=== PATIENT | male | born 1980 | race Caucasian/White ===

== ENCOUNTER 2018-02-07 22:11 | Emergency (ER) | payer SELFPAY ==
[2018-02-08] MEDS ORDERED: HYDROCODONE/ACETAMINOPHEN 5-325 MG (6 TAB/ER DISP) PO PRN (02:40)
[2018-02-08] MEDS ORDERED: PENICILLIN V POTASSIUM 500 MG TABLET PO ONE (02:40)
--- NOTE | 2018-02-08 02:41 | ER Document Report ---
ED Oral Problem - General Chief Complaint: Abscess Stated Complaint: TOOTH PAIN Time Seen by Provider: 02/08/18 02:40 Mode of Arrival: Ambulatory Information source: Patient Notes: Patient reports pain to left lower tooth 3 days. Patient has been unable to get into see his dentist. Patient denies any injury. - Related Data Allergies/Adverse Reactions: No Known Allergies Allergy (Unverified 02/07/18 22:23) Past Medical History - General Information source: Patient - Social History Smoking Status: Never Smoker Frequency of alcohol use: None Drug Abuse: None Family History: Reviewed & Not Pertinent - Past Medical History Cardiac Medical History: Reports: Hx Hypertension Surgical Hx: Negative - Immunizations Hx Diphtheria, Pertussis, Tetanus Vaccination: Yes Review of Systems - Review of Systems Constitutional: No symptoms reported EENT: See HPI Cardiovascular: No symptoms reported Respiratory: No symptoms reported Gastrointestinal: No symptoms reported Genitourinary: No symptoms reported Male Genitourinary: No symptoms reported Musculoskeletal: No symptoms reported Skin: No symptoms reported Hematologic/Lymphatic: No symptoms reported Neurological/Psychological: No symptoms reported Physical Exam - Vital signs Vitals: Temp Pulse Resp BP Pulse Ox 99.3 F 78 18 170/99 H 97 02/07/18 22:19 02/07/18 22:19 02/07/18 22:19 02/07/18 22:19 02/07/18 22:19 - Notes Notes: PHYSICAL EXAMINATION: GENERAL: Well-appearing, well-nourished and in no acute distress. HEAD: Atraumatic, normocephalic. EYES: Pupils equal round extraocular movements intact, conjunctiva are normal. ENT: Nares patent NECK: Normal range of motion LUNGS: No respiratory distress Musculoskeletal: Normal range of motion NEUROLOGICAL: Normal speech, normal gait. PSYCH: Normal mood, normal affect. SKIN: Warm, Dry, normal turgor, no rashes or lesions noted. Course - Re-evaluation Re-evalutation: Erythema noted to left lower gumline, no drainable abscess identified. Will place patient on Pen-Vee K and provide a dispense pack of hydrocodone. Patient also instructed to take ibuprofen. Patient given resources for dental follow- up. - Vital Signs Vital signs: Temp Pulse Resp BP Pulse Ox 98.2 F 71 16 147/96 H 99 02/08/18 03:13 02/08/18 03:13 02/08/18 03:13 02/08/18 03:13 02/08/18 03:13 Discharge - Discharge Clinical Impression: Dental infection Condition: Stable Disposition: HOME, SELF-CARE Additional Instructions: TOOTHACHE: Your pain is due to dental decay. The tooth must be repaired in order for you to feel better. You will, therefore, be referred to a dentist. We do not have dentists on the staff at [facility]. Severe swelling or drainage around a tooth usually means a dental abscess. This also requires evaluation and treatment by the dentist, but antibiotics may be prescribed while awaiting dental treatment. You should be rechecked immediately if you develop major swelling of the face, increasing pain, a lump in the jaw or gums, headache, difficulty swallowing, or fever. ORAL NARCOTIC MEDICATION: You have been given a prescription for pain control. This medication is a narcotic. It's best taken with food, as nausea can result if taken on an empty stomach. Don't operate machinery or drive within six hours of taking this medication. Do not combine this medicine with alcohol, or with any medication which can cause sedation (such as cold tablets or sleeping pills) unless you get permission from the physician. Narcotics tend to cause constipation. If possible, drink plenty of fluids and eat a diet high in fiber and fruits. Please be aware that prescription narcotics also have the potential for abuse. People become addicted to these medications because of the general sense of wellbeing that they induce. This feeling along with a significant reduction in tension, anxiety, and aggression provides a stimulating seductive quality to these drugs. Once your pain is under control, we encourage you to discard your unused narcotics. PENICILLIN V K: You have been given a prescription for Penicillin VK. Your physician has determined that this is the best antibiotic for your condition. Pen VK can be taken with meals, however more of the antibiotic gets into the bloodstream if it's taken on an empty stomach. Penicillin usually has no side effects. However, allergy to penicillins is common. If you have had an allergic reaction to any drug of the penicillin family, you should never take any other penicillin. Notify your doctor at once if you develop hives, itching, swelling, faintness, or shortness of breath. FOLLOW-UP CARE: You have been referred for follow-up care to the dentists listed below. Call the dentists office for an appointment as you were instructed or within the next two days. If you experience worsening or a significant change in your symptoms, notify the physician immediately or return to the Emergency Department at any time for re-evaluation. Please take ibuprofen 600 mg every 6 hours for the pain, use the Vicodin that I am sending you home with only for severe pain. Take the antibiotics as prescribed, finish all of the antibiotics even if your symptoms resolve. Call the [facility] to schedule an appointment for dental extraction. [facility] [address] Prescriptions: Penicillin V Potassium [Penicillin Vk 500 mg Tablet] 500 mg PO BID #20 tablet
[2018-02-08 03:16] VITALS: BP 147/96
== END 2018-02-08 03:13 | disposition home or self-care (01) ==
LOC: ER 22:11
DX: K04.7 Periapical abscess without sinus (principal)
CPT/HCPCS: 99282

== ENCOUNTER 2018-06-01 04:04 | Emergency (ER) | payer OTHER ==
[2018-06-01] MEDS ORDERED: NORMAL SALINE 1000 ML 1,000 ML IV ONE (04:16)
[2018-06-01] MEDS ORDERED: KETOROLAC TROMETHAMINE INJ/PF 30 MG/1 ML SDV IV ONE (04:16)
[2018-06-01] MEDS ORDERED: HYDROCODONE/ACETAMINOPHEN 5-325 MG TABLET PO ONE (04:17)
[2018-06-01] MEDS ORDERED: VANCOMYCIN HCL INJ 1000 MG VIAL IV ONE (04:20)
--- NOTE | 2018-06-01 04:26 | ER Document Report ---
ED General - General Chief Complaint: Elbow Injury Stated Complaint: SWOLLEN ELBOW Time Seen by Provider: 06/01/18 04:10 Notes: Patient is a pleasant 37-year-old male who presents with complaint of swelling of his left upper extremity. Swelling is mainly from the elbow and into the forearm. Some associated redness and erythema. Patient says that just over 24 hours ago he was working with [employer] and he slipped and fell from a height onto the ground landing on his left elbow. He said he had some pain but no swelling. Tonight he suddenly developed worsening swelling. He says he had to have a surgical procedure to have his bursa drained when he was a kid after he did have a puncture of the bursa on his left elbow. He denies any fevers. No vomiting. No pain into the wrist or hand. He is able to flex and extend the elbow but does have some pain in doing so. TRAVEL OUTSIDE OF THE [place] IN LAST 30 DAYS: No - Related Data Allergies/Adverse Reactions: No Known Allergies Allergy (Unverified 02/07/18 22:23) Past Medical History - Social History Smoking Status: Unknown if Ever Smoked Frequency of alcohol use: None Drug Abuse: None Family History: Reviewed & Not Pertinent - Past Medical History Cardiac Medical History: Reports: Hx Hypertension Renal/ Medical History: Denies: Hx Peritoneal Dialysis - Immunizations Hx Diphtheria, Pertussis, Tetanus Vaccination: Yes Review of Systems - Review of Systems Notes: My Normal Review Basic REVIEW OF SYSTEMS: CONSTITUTIONAL : Denies fever, chills, or sweats. Denies recent illness. MUSCULOSKELETAL: Swelling and pain to left elbow. SKIN: Denies rash or skin lesions. NEUROLOGICAL: Denies sensory or motor loss. ALL OTHER SYSTEMS REVIEWED AND NEGATIVE. Physical Exam - Notes Notes: General Appearance: Well nourished, alert, cooperative, no acute distress, mild to moderate obvious discomfort. Well-appearing. Vitals: reviewed, See vital signs table. Eyes: PERRL, EOMI, Conjuctiva clear Extremities: good pulses in all extremities, patient has obvious swelling to the left elbow with swelling tracking to left forearm. There is some erythema over this area. Erythema is faint in color. It is blanchable. Elbows not significantly hot. Findings are consistent with bursitis with the exception that there is a little more swelling going into the forearm. There is no crepitus to palpation. I am able to have the patient flex and extend his elbow. He is almost able to come completely extend the elbow except for the remaining 15 degrees. Is able to flex the elbow to approximately 90 degrees. Sensation intact in the hand. Patient able move all 5 ears without difficulty. Capillary refill is normal. Skin: warm, dry, appropriate color, no rash Neuro: speech clear, oriented x 3, normal affect, responds appropriately to questions. Course - Re-evaluation Re-evalutation: 06/01/18 06:[address] scan shows large amount of inflammation subcutaneous tissue but does not show any obvious fluid collection or abscess. I suspect he probably has a post traumatic bursitis. Being that he has had drainage of this bursa in the past infection will place an antibiotic. He does have some faint redness to the skin. He does not have fevers. He does not have evidence of septic joint and that he is able to flex and extend the elbow without difficulty. Since arriving here and received a Toradol he actually has largely increased flexion extension of the elbow now can fully extend the elbow and fully flex it without difficulty. He has decrease in swelling as well and says it is feeling improved. I encouraged him to follow-up with orthopedist on Sunday. He says he may not be able to do that. I informed her if she is unable to see the orthopedist and he can return here and we will reevaluate his elbow if he still having any swelling. Informed him return to ER immediately if he has any fevers , increasing redness or swelling, if he feels that is worsening in any way. Also, I informed patient to try to take the day off and not to use his elbow as he does [employer] work. Patient is adamant about still going to work today. He says he will "protect it". I informed him that repetitive use of his elbow will probably cause at the start swelling again and become more painful. Patient says that he still has to work and would just "protect it" when working. Dictation of this chart was performed using voice recognition software; therefore, there may be some unintended grammatical errors. - Laboratory Result Diagrams: 06/01/18 04:39 06/01/18 04:39 Laboratory results interpreted by me: 06/01/18 06/01/18 04:39 04:39 WBC 11.0 H Glucose 141 H Discharge - Discharge Clinical Impression: Swelling of elbow Qualifiers: Laterality: left Qualified Code(s): M25.422 - Effusion, left elbow Condition: Good Disposition: HOME, SELF-CARE Additional Instructions: I suspect you have a traumatic bursitis. This will cause swelling to your elbow. Being that you have some redness associated with it we have placed you on antibiotics in case there is some underlying infection. Please follow-up with orthopedic doctor on Sunday or early this coming week. You should return to the ER for reevaluation if you are unable to follow-up the orthopaedist and you still have pain or swelling to the elbow. Please try the rest your left elbow as much as possible. Use cold compresses for 20 minutes at a time. Please return to the ER immediately if you have increasing swelling, spreading redness, fevers, or increasing stiffness in the joint. Take ibuprofen 400 mg every 6 hours for pain. Take this with food so it does not irritate your stomach. Please be aware that [place] does have Tylenol (acetaminophen) in it. Please make sure you do not take more than 4000 mg of acetaminophen a day. Do not drive or care for children after you have taken this medication they will make you sleepy and sometimes impair judgment. Prescriptions: Clindamycin HCl [Cleocin 150 mg Capsule] 300 mg PO Q6 #56 capsule Referrals: CHAS ANAYA MD [ACTIVE STAFF] - 06/03/18
[2018-06-01 04:53] LABS: ABSOLUTE EOSINOPHILS # (AUTO) 0.1 10^3/uL (0.0-0.6); ABSOLUTE LYMPHOCYTES (AUTO) 2.4 10^3/uL (0.5-4.7); ABSOLUTE MONOCYTES (AUTO) 1.1 10^3/uL (0.1-1.4); ABSOLUTE NEUT (AUTO) 7.3 10^3/uL (1.7-8.2); BASOPHILS % (AUTO) 0.3 % (0-2); HEMATOCRIT 41.6 % (37.9-51.0); HEMOGLOBIN 14.6 g/dL (13.5-17.0); LYMPHOCYTES % (AUTO) 21.7 % (13-45); MEAN CORPUSCULAR HEMOGLOBIN 31.2 pg (27.0-33.4); MEAN CORPUSCULAR HGB CONC 35.1 g/dL (32.0-36.0); MEAN CORPUSCULAR VOLUME 89 fl (80-97); MONOCYTES % (AUTO) 10.2 % (3-13); PLATELET COUNT 204 10^3/uL (150-450); RED BLOOD COUNT 4.68 10^6/uL (4.35-5.55); RED CELL DISTRIBUTION WIDTH 13.3 % (11.5-14.0); SEGMENTED NEUTROPHILS % (AUTO) 66.8 % (42-78); TOTAL CELLS COUNTED % (AUTO) 100 %
[2018-06-01 05:06] LABS: ANION GAP 13 (5-19); BLOOD UREA NITROGEN 16 mg/dL (7-20); CARBON DIOXIDE 25 mmol/L (22-30); CHLORIDE 104 mmol/L (98-107); GLUCOSE 141 mg/dL (75-110); SODIUM 141.6 mmol/L (137-145)
--- NOTE | 2018-06-01 06:17 | RADIOLOGY REPORT (SQ) ---
EXAM DESCRIPTION: CT UPPER EXTREMITY WITH IV CONTRAST COMPLETED DATE/TME: 06/01/2018 04:15 CLINICAL HISTORY: 37 years, Male, elbow swelling and pain COMPARISON: None. TECHNIQUE: 436 Images stored on PACS. All CT scanners at this facility use dose modulation, iterative reconstruction, and/or weight based dosing when appropriate to reduce radiation dose to as low as reasonably achievable (ALARA). [facility]: Dose Right [facility]: CareDose [facility]: Dose Right [facility]: Teradose 4D [facility]: VideoCare LIMITATIONS: None. FINDINGS: Posterior subcutaneous edema and inflammatory change. No well-defined fluid collection or abscess. Small olecranon spur. Negative for acute fracture or dislocation. No soft tissue gas. Possible small hematoma/inflammatory change most pronounced at the site of the olecranon spur. No discrete enhancing abnormality. IMPRESSION: Posterior soft tissue swelling/edema and inflammation which could reflect a combination of posttraumatic change and/or cellulitis. No acute osseous abnormality. Small olecranon spur. Inflammatory changes surrounding the olecranon spur are most pronounced. Possible small hematoma at this site as well. TECHNICAL DOCUMENTATION: Quality ID # [id number]: Final reports with documentation of one or more dose reduction techniques (e.g., Automated exposure control, adjustment of the mA and/or kV according to patient size, use of iterative reconstruction technique) copyright 2010 [employer]- All Rights Reserved
[2018-06-01] MEDS ORDERED: HYDROCODONE/ACETAMINOPHEN 5-325 MG (6 TAB/ER DISP) PO PRN (06:29)
[2018-06-01 08:13] VITALS: BP 129/83
== END 2018-06-01 08:17 | disposition home or self-care (01) ==
LOC: ER 04:04
DX: M25.422 Effusion, left elbow (principal); M25.522 Pain in left elbow; W17.89XA Other fall from one level to another, initial encounter; Y93.89 Activity, other specified; Y99.0 Civilian activity done for income or pay; M79.89 Other specified soft tissue disorders; L53.9 Erythematous condition, unspecified; I10 Essential (primary) hypertension
CPT/HCPCS: 99284; 96361; 96374; 36415; 85025; 80048; 73201; J1885; J7030; J3370

== ENCOUNTER 2018-07-02 19:24 | Emergency (ER) | payer SELFPAY ==
[2018-07-03] MEDS ORDERED: DIPH/PERTUSS(ACELL)/TETANUS VAC/PF 0.5 ML SYR (>=10YO) IM ONE (00:34)
--- NOTE | 2018-07-03 00:36 | ER Document Report ---
HPI - HPI Patient complains to provider of: Left second finger wound Time Seen by Provider: 07/03/18 00:34 Onset: Other - 4 days Onset/Duration: Persistent Quality of pain: Achy Pain Level: 3 Context: Patient presents complaining of wound to the left second finger for the past 4 days. Patient denies any fever. Patient is concerned that he may need additional antibiotics. Patient was taken a leftover prescription of clindamycin at home. Patient denies any injury to the finger. Patient states that he suspects he has a spider bite to the finger. Patient is also concerned that he needs a tetanus immunization. Associated Symptoms: Other - Left second finger wound Exacerbated by: Denies Relieved by: Denies Similar symptoms previously: No Recently seen / treated by doctor: No - ROS ROS below otherwise negative: Yes Systems Reviewed and Negative: Yes All other systems reviewed and negative - CONSTITUTIONAL Constitutional: DENIES: Fever - GASTROINTESTINAL Gastrointestinal: DENIES: Nausea - MUSCULOSKELETAL Musculoskeletal: REPORTS: Extremity pain - DERM Notes: Open wound to finger Past Medical History - General Information source: Patient - Social History Smoking Status: Current Every Day Smoker Smoking Education Provided: Yes Frequency of alcohol use: None Drug Abuse: None Occupation: [employer] Family History: Reviewed & Not Pertinent - Past Medical History Cardiac Medical History: Reports: Hx Hypertension Renal/ Medical History: Denies: Hx Peritoneal Dialysis Surgical Hx: Negative - Immunizations Hx Diphtheria, Pertussis, Tetanus Vaccination: Yes Vertical Provider Document - CONSTITUTIONAL Agree With Documented VS: Yes Exam Limitations: No Limitations General Appearance: WD/WN, No Apparent Distress - INFECTION CONTROL TRAVEL OUTSIDE OF THE [place] IN LAST 30 DAYS: No - HEENT HEENT: Atraumatic, Normocephalic - NECK Neck: Normal Inspection - RESPIRATORY Respiratory: No Respiratory Distress - CARDIOVASCULAR Pulses: Normal: Radial - MUSCULOSKELETAL/EXTREMETIES Musculoskeletal/Extremeties: MAEW, FROM, Edema - 1+edema to L 2nd finger - NEURO Level of Consciousness: Awake, Alert, Appropriate Motor/Sensory: No Motor Deficit - DERM Integumentary: Warm, Dry. negative: Abscess Notes: Open wound to left second finger proximal phalanx, no purulent drainage noted. No concern for tenosynovitis. Course - Vital Signs Vital signs: Temp Pulse Resp BP Pulse Ox 98.9 F 99 17 151/88 H 94 07/02/18 19:40 07/02/18 19:40 07/02/18 19:40 07/02/18 19:40 07/02/18 19:40 Discharge - Discharge Clinical Impression: Wound, open, finger Qualifiers: Encounter type: initial encounter Qualified Code(s): S61.209A - Unspecified open wound of unspecified finger without damage to nail, initial encounter Condition: Stable Disposition: HOME, SELF-CARE Instructions: Bactroban Ointment ([facility]), Clindamycin ([facility]), Dressing Instructions for Open Wounds ([facility]), Tetanus Immunization Given ([facility]) Additional Instructions: Return immediately for any new or worsening symptoms Followup with your primary care provider, call tomorrow to make a followup appointment Keep wound covered as it continues to heal Prescriptions: Clindamycin HCl [Cleocin Hcl] 300 mg PO QID #28 capsule Mupirocin [Bactroban 2% Ointment 22 gm] 1 applic TP TID #22 gm Forms: Smoking Cessation Education Referrals: [facility] [Provider Group] - Follow up as needed
[2018-07-03 04:21] VITALS: BP 151/84
== END 2018-07-03 00:55 | disposition home or self-care (01) ==
LOC: ER 19:24
DX: S61.201A Unspecified open wound of left index finger without damage to nail, initial encounter (principal); X58.XXXA Exposure to other specified factors, initial encounter; F17.200 Nicotine dependence, unspecified, uncomplicated; I10 Essential (primary) hypertension
CPT/HCPCS: 90471; 90715; 99282